=== PATIENT | female | born 1955 | race African-American/Black ===

== ENCOUNTER 2017-07-11 23:35 | Emergency (ER) | payer SELFPAY ==
[~2017-07-11] VITALS: Ht 157.5 cm; Wt 87.8 kg
[2017-07-11 23:38] VITALS: BP 159/93; PULSE 76; TEMP 98
[2017-07-12] MEDS ORDERED: VICTOZA6 MG/ML SQ ×2 (00:46→01:04)
[2017-07-12] MEDS ORDERED: LIPITOR 10MG10 MG PO (01:00)
[2017-07-12] MEDS ORDERED: NORVASC2.5 MG PO (01:03)
[2017-07-12] MEDS ORDERED: ASPIRIN 81M81 MG/TA2 PO (01:03)
== END 2017-07-12 01:06 | disposition home or self-care (01) ==
LOC: COL.ER 23:35
DX: E11.65 Type 2 diabetes mellitus with hyperglycemia (principal); I10 Essential (primary) hypertension; E78.5 Hyperlipidemia, unspecified; Z98.51 Tubal ligation status; Z79.4 Long term (current) use of insulin; Z79.82 Long term (current) use of aspirin

== ENCOUNTER 2019-05-23 10:22 | Emergency (ER) | payer MEDICARE ==
[~2019-05-23] VITALS: Ht 157.5 cm; Wt 76.4 kg
[~2019-05-23 10:22] MED LIST: ASPIRIN 81M81 MG/TA2 PO; LIPITOR 10MG10 MG PO; NORVASC 5MG5 MG/TAB PO; VICTOZA6 MG/ML SQ
[2019-05-23 10:49] VITALS: TEMP 97
[2019-05-23] MEDS ORDERED: TRULICITY0.75 MG/0. SQ ×2 (11:39→11:51)
[2019-05-23] MEDS ORDERED: HCTZ 25MG TAB25 MG PO (11:41)
[2019-05-23] MEDS ORDERED: GLUCOPHAGE500 MG/TAB PO ×2 (11:42→11:52)
[2019-05-23 12:31] LABS: BASO # 0.1 (0.0-0.2); BASO % 1.2 % (0.0-2.0); EOS # 0.3 (0.0-0.7); EOS % 5.6 % (0-4.0); GRAN # 3.2 (1.4-6.5); HEMATOCRIT 41.8 % (37.0-47.0); HEMOGLOBIN 13.4 g/dl (12.5-16.0); LYMPH # 2.1 (1.2-3.4); LYMPH % 34.4 % (20.0-51.0); MEAN CELL VOLUME 89 fl (80.0-100.0); MEAN CORPUSCULAR HEMOGLOBIN 28 pg (27.0-31.0); MEAN CORPUSCULAR HGB CONC 32 g/dl (33.0-37.0); MEAN PLATELET VOLUME 11.6 fl (7.4-10.4); MONO # 0.4 (0.1-0.6); MONO % 6.6 % (1.7-9.3); PLATELET COUNT 247 K/mm3 (130-400); RED BLOOD COUNT 4.72 M/mm3 (4.10-5.30); REDCELL DISTRIBUTION WIDTH-CV 12.7 % (11.5-14.5)
[2019-05-23 12:37] LABS: ACETONE,SERUM NEGATIVE; ALANINE AMINOTRANSFERASE 15 U/L (4-34); ALBUMIN 4.3 gm/dL (3.5-5.0); ALKALINE PHOSPHATASE 102 U/L (50-136); ANION GAP 13 mmol/L (7-16); AST,SGOT 22 U/L (15-37); BILIRUBIN,TOTAL 0.7 mg/dL (0.0-1.0); BLOOD UREA NITROGEN 21 mg/dL (7-17); CALCIUM 9.3 mg/dL (8.4-10.2); CARBON DIOXIDE 25 mmol/L (22-30); CHLORIDE 99 mmol/L (98-107); CREATININE, serum 0.58 (0.52-1.25); POTASSIUM 3.7 mmol/L (3.4-5.0); SODIUM 137 mmol/L (137-145); TOTAL PROTEIN 8.3 gm/dL (6.4-8.2)
[2019-05-23 12:41] LABS: GLUCOSE 469 mg/dL (74-106)
[2019-05-23 14:45] VITALS: BP 141/78; PULSE 78
== END 2019-05-23 14:45 | disposition home or self-care (01) ==
LOC: COL.ER 10:22
PROVIDERS: Emergency Medicine
DX: E11.65 Type 2 diabetes mellitus with hyperglycemia (principal); I10 Essential (primary) hypertension; Z79.82 Long term (current) use of aspirin; Z79.84 Long term (current) use of oral hypoglycemic drugs
CPT/HCPCS: J1815; J7030